=== PATIENT | male | born 1940 | race Caucasian/White ===

== ENCOUNTER 2020-12-20 11:13 | Emergency (ER) | payer MEDICARE, OTHER ==
[~2020-12-20] VITALS: Ht 185.4 cm; Wt 79.8 kg
[~2020-12-20 11:13] MED LIST: ADULT LOW DOSE81 MG PO; FISH OIL 1,0001 EAC7 PO; FLEXERIL PO; LIPITOR20 MG PO; LISINOPRIL20 MG PO; LOPRESSOR 50 MG50 M1 PO; NIASPAN750 MG PO; NORCO 5-325 TA1 EACH PO; PLAVIX 75 MG TA75 MG PO
[2020-12-20] MEDS ORDERED: LEVSIN0.125 MG PO (11:20)
[2020-12-20] MEDS ORDERED: LORAZEPAM0.5 MG/1 M PO (11:21)
[2020-12-20] MEDS ORDERED: MSL20MG/ML PO (11:22)
[2020-12-20] MEDS ORDERED: MULTIVITAMIN (11:22)
[2020-12-20] MEDS ORDERED: MIRALAX119 GM PO (11:23)
[2020-12-20] MEDS ORDERED: KLOR-CON 1010 MEQ PO (11:23)
[2020-12-20] MEDS ORDERED: PREDNISOLONE SO10 MG PO (11:25)
[2020-12-20] MEDS ORDERED: PROBIOTIC250 MG PO (11:26)
[2020-12-20] MEDS ORDERED: SENNA8.6 MG PO (11:26)
[2020-12-20] MEDS ORDERED: VITCB500GO PO (11:27)
[2020-12-20] MEDS ORDERED: ZOLOFT50 M1 PO (11:28)
[2020-12-20] MEDS ORDERED: VITAMIN D (11:33)
[2020-12-20] MEDS ORDERED: ZOLOFT 50 MG TA50 MG PO (11:33)
[2020-12-20 12:03] LABS: ABSOLUTE EOSINOPHILS 0.1 thou/uL (0.0-0.7); ABSOLUTE LYMPHOCYTES 1.3 thou/uL (0.8-5.3); ABSOLUTE MONOCYTES 0.7 thou/uL (0.0-1.2); ABSOLUTE NEUTROPHILS 9.3 thou/uL (1.6-8.1); BASOPHILS 0.4 %; EOSINOPHILS 0.5 %; HEMATOCRIT 28.5 % (42.0-52.0); HEMOGLOBIN 9.1 gm/dL (14.0-18.0); LYMPHOCYTES 11.6 %; MCH 27.2 pg (26.0-34.0); MCHC 31.8 g/dL (28.0-37.0); MCV 85.8 fL (80.0-100.0); MONOCYTES 6.2 %; MPV 6.2 fl. (7.2-11.1); NUCLEATED RBCS 0 /100WBC; PLATELET COUNT* 238 thou/uL (150-400); POLYS 81.3 %; RBC 3.33 mil/uL (4.50-6.00); RDW-CV 17.2 % (10.5-14.5); WBC 11.4 thou/uL (4.0-11.0)
[2020-12-20 12:31] LABS: APTT 23.4 Seconds (25.0-31.3); PROTIME 10.9 Seconds (9.20-11.50)
[2020-12-20] MEDS ORDERED: CEPHALEXIN500 MG PO (12:40)
[2020-12-20 14:12] VITALS: BP 118/68
== END 2020-12-20 14:12 ==
LOC: M.ERS 11:13
PROVIDERS: Nurse Practitioner Family
DX: R04.0 Epistaxis (principal); Z96.641 Presence of right artificial hip joint; Z88.1 Allergy status to other antibiotic agents